=== PATIENT | male | born 1995 | race Two or more races ===

== ENCOUNTER 2023-01-11 18:36 | Emergency (ER) | payer OTHER ==
[~2023-01-11] VITALS: Ht 172.7 cm; Wt 80.3 kg
== END 2023-01-11 20:56 | disposition home or self-care (01) ==
LOC: ER 18:36
DX: S90.474A Other superficial bite of right lesser toe(s), initial encounter (principal); W56.81XA Bitten by other nonvenomous marine animals, initial encounter; Y93.89 Activity, other specified; Y92.832 Beach as the place of occurrence of the external cause